=== PATIENT | female | born 1945 | race Caucasian/White ===

== ENCOUNTER → 2021-02-07 | Outpatient (CLI) | payer MEDICARE, OTHER ==
[~2021-02-07] MED LIST: ASPIR 8181 MG PO; CHLOROPHYLL; COLOSTRUM500 MG PO; ELIQUIS 2.5 MG2.5 MG PO; FISH OIL-OMEGA1 EACH PO; LEXAPRO20 MG PO; MEGA BIOTIN10000 MCG PO; METFORMIN HCL500 MG PO; NATURAL CALM MAG PO; NEO-POLYCIN EY3.5 GM OP; PERCOCET 5/325 T1 EA PO; POTASSIUM CHLO10 MEQ PO; PROBIOTIC & AC1 EACH PO; TENORMIN 50 MG50 MG PO; TRAZODONE HCL100 MG PO; TRIAMTERENE-HC1 EACH PO; VITAMIN B-1000 MCG/M IM; VITAMIN D250000 UNIT PO; [UNRECOGNIZED DRUG - OTHER] PO
== END ==
LOC: OPSV 12:48
DX: M81.0 Age-related osteoporosis without current pathological fracture (principal)
CPT/HCPCS: 96365; J3489

== ENCOUNTER → 2021-11-05 | Outpatient (CLI) | payer MEDICARE, OTHER | LOC: RAD 15:44 | DX: M25.552 Pain in left hip (principal) | CPT/HCPCS: 73501 ==